=== PATIENT | male | born 1995 | race Hispanic/Latino ===

== ENCOUNTER 2021-08-21 17:23 | Emergency (ER) | payer BC ==
--- OUTSIDE RECORDS SUMMARY | 2021-08-21 17:26 | XMS REPORT | Continuity of Care Document ---
:1995 Author Organization [facility] t Address [address] [place] [address] Care Team Providers Name Role Phone Lab, Fam Pob I Attending Clinician Unavailable Se BORGES Attending Clinician Anita Hooker Attending Clinician Anita ALMEIDA Attending Clinician Unavailable SE Attending Clinician Unavailable Payers Payer Name Policy Type Policy Number Effective Date Expiration Date S ource Problems This patient has no known problems. Allergies, Adverse Reactions, Alerts Allergy Allergy Status Severity Reaction(s) Onset Inactive Treating Comm ents Source Name Type Date Date Clinician NO KNOWN Drug Active Univers ALLERGIE Class ity of S [facility] Social History Social Habit Start Date Stop Date Quantity Comments Source [facility] to [facility] Smoking Status Start Date Stop Date Source Unknown if ever smoked [facility] Medications Ordered Filled Start Stop Current Ordering Indication Dosage Frequency Signature Comments Components Source Medication Medication Date Date Medication? Clinician (SIG) Name Name amoxicillin Yes 500mg Take 500 U nivers -pot 5-21 mg by ity of clavulanate 05:57: mouth 3 Adal as 500 mg 28 (three) Medical 500-125 mg times Branch tablet daily. predniSONE Yes 20mg Take 20 mg U nivers 20 mg 5-21 by mouth ity of tablet 05:57: daily. [address] amoxicillin Yes 500mg Take 500 U nivers -pot 5-21 mg by ity of clavulanate 05:57: mouth 3 Adal as 500 mg 28 (three) Medical 500-125 mg times Branch tablet daily. predniSONE Yes 20mg Take 20 mg U nivers 20 mg 5-21 by mouth ity of tablet 05:57: daily. [address] Branch albuterol 2016-0 Yes 2{puff} Inhale 2 U nivers 90 5-21 Puffs ity of mcg/actuati 00:00: every 4 Adal as on inhaler 00 (four) Medical hours as Branch needed for Wheezing or Shortness of Breath. loratadine 2017-0 Yes 10mg Take 1 Unive rs 10 mg 5-21 tablet by ity of tablet 00:00: mouth [place] 00 daily. Medical Branch albuterol 2016-0 Yes 2.5mg Inhale 3 Uni vers 2.5 mg /3 5-21 mL every 4 ity of mL (0.083 00:00: (four) [place] %) 00 hours. May Medical nebulizer also Branch solution nebulize one extra every 6 hours. albuterol 2016-0 Yes 2{puff} Inhale 2 U nivers 90 5-21 Puffs ity of mcg/actuati 00:00: every 4 Adal as on inhaler 00 (four) Medical hours as Branch needed for Wheezing or Shortness of Breath. loratadine 2016-0 Yes 10mg Take 1 Unive rs 10 mg 5-21 tablet by ity of tablet 00:00: mouth [place] 00 daily. Medical Branch albuterol 0 Yes 2.5mg Inhale 3 Uni vers 2.5 mg /3 5-21 mL every 4 ity of mL (0.083 00:00: (four) [place] %) 00 hours. May Medical nebulizer also Branch solution nebulize one extra every 6 hours. Procedures This patient has no known procedures. Encounters Start End Encounter Admission Attending Care Care Encounter Source Date/Time Date/Time Type Type Clinicians Facility Department ID 2020-09-10 2020-09-10 Laboratory Lab, Adc Fam Pob I [facility] 1.2. [id number] Univers 14:08:44 14:28:44 Only Vani Suggs [facility] [id number] ity of Li [place] [id number] [place] Professbrianna [phone] Al dical nal [address] 2020-09-10 2020-09-10 Outpatient R [facility] [id number] Univers 14:20:00 14:20:00 [id number] [facility] 2020-09-10 2020-09-10 Outpatient R MAYANK [facility] [id number] Univers 14:20:00 14:20:00 LI [facility] 2020-02-18 2020-02-18 Laboratory Lab, Adc Fam Pob I [facility] 1.2. [id number] Univers 10:30:23 10:50:23 Only Vani Suggs [facility] [id number] [facility] [id number] Adal as Professio [phone] [address] 2020-02-18 2020-02-18 Outpatient R SE [facility] [id number] Univers 10:40:00 10:40:[address] [facility] Results This patient has no known results.
[2021-08-21 21:16] LABS: Urine Blood Negative (Negative); Urine Glucose Negative (Negative); Urine Protein Negative (Negative); Urine Specific Gravity 1.025 (1.005-1.030)
[2021-08-21 21:37] LABS: Absolute Lymphocytes (CBC) 2.8 K/uL (0.7-4.9); Hematocrit 46.9 % (39.6-49.0); Lymphocytes % 23.3 % (15.3-44.8); MPV 11.9 fL (7.6-11.3)
[2021-08-21] MEDS ORDERED: NA CHLORIDE 0.9% 500 ML ONE (21:38)
[2021-08-21] MEDS ORDERED: KETOROLAC 30 MG/ML INJ ONE (21:38)
[2021-08-21 21:47] LABS: ALT/SGPT 38 U/L (12-78); AST/SGOT 18 U/L (15-37); Albumin 3.6 g/dL (3.4-5.0); Alkaline Phosphatase 99 U/L (45-117); BUN Blood Urea Nitrogen 8 mg/dL (7-18); Bicarbonate 25 mmol/L (21-32); Bilirubin Direct 0.1 mg/dL (0-0.2); Bilirubin Total 0.4 mg/dL (0.2-1.0); Glucose Level 87 mg/dL (74-106); Lipase 75 U/L (73-393); Potassium 3.8 mmol/L (3.5-5.1); Protein, Total 8.6 g/dL (6.4-8.2); Sodium Level 137 mmol/L (136-145)
[2021-08-21 22:01] LABS: Urine Bacteria <20 /HPF (NONE SEEN); Urine RBC <5 /HPF (NONE SEEN)
--- NOTE | 2021-08-22 00:16 | EDPHYS ---
Physician Documentation [facility] Name: Abdiaziz Pierce Age: 25 yrs Sex: Male : 1995 Arrival Date: 08/21/2021 Time: 17:29 Bed 17 Private MD: ED Physician Red Walsh HPI: 08/21 21:20 This 25 yrs old Male presents to ER via Ambulatory with complaints of Flank cp Pain. 21:20 The patient complains of pain in the left upper flank and left upper abdomen. The pain cp does not radiate. 21:20 Onset: The symptoms/episode began/occurred suddenly, today. cp 21:20 Modifying factors: the symptoms are aggravated by movement. Associated signs and cp symptoms: Pertinent negatives: diarrhea, fever, urinary frequency, pain radiating to the lower extremities, vomiting, rash, injury. Patient reports he was awaken with sudden pain to left flank area today. 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 - Social history:: Smoking status: Patient denies any tobacco usage or history of. ROS: 21:25 Back: Positive for flank pain, on the left, Negative for injury or acute deformity, cp decreased range of motion. 21:25 Eyes: Negative for injury, pain, redness, and discharge. cp 21:25 Constitutional: Negative for body aches, chills, fever. 21:25 Neck: Negative for pain with movement, pain at rest, stiffness. 21:25 Cardiovascular: Negative for chest pain. 21:25 Respiratory: Negative for cough, shortness of breath, wheezing. 21:25 Abdomen/GI: Negative for nausea, vomiting, diarrhea, constipation. 21:25 Skin: Negative for rash. 21:25 Neuro: Negative for altered mental status, headache, weakness. 21:25 All other systems are negative. Exam: 21:30 Constitutional: The patient appears in no acute distress, alert, awake, non-toxic, well cp developed, well nourished, obese. 21:30 Head/Face: Normocephalic, atraumatic. cp 21:30 Eyes: Periorbital structures: appear normal, Conjunctiva: normal, no exudate, no injection, Sclera: no appreciated abnormality, Lids and lashes: appear normal, bilaterally. 21:30 ENT: External ear(s): are unremarkable, Nose: is normal, Mouth: Lips: moist, Oral mucosa: moist, Posterior pharynx: Airway: no evidence of obstruction, patent. 21:30 Neck: ROM/movement: is normal, is supple, without pain, no range of motions limitations. 21:30 Chest/axilla: Inspection: normal, Palpation: is normal, no crepitus, no tenderness. 21:30 Cardiovascular: Rate: normal, Rhythm: regular. 21:30 Respiratory: the patient does not display signs of respiratory distress, Respirations: normal, no use of accessory muscles, no retractions, labored breathing, is not present, Breath sounds: are clear throughout, no decreased breath sounds, no stridor, no wheezing. 21:30 Abdomen/GI: Inspection: abdomen appears normal, Palpation: soft, in all quadrants, mild abdominal tenderness, in the left upper quadrant and left upper lateral abdomen, rebound tenderness, is not appreciated, voluntary guarding, is not appreciated, involuntary guarding, is not appreciated. 21:30 Back: pain, is absent, ROM is normal. 21:30 Skin: cellulitis, is not appreciated, no rash present. Vital Signs: 18:04 BP 135 / 91; Pulse 90; Resp 18; Temp 98.5; Pulse Ox 100% ; Weight 158.76 kg; Height 6 vg1 ft. 2 in. (187.96 cm); Pain 7/10; 21:19 BP 142 / 87; Pulse 85; Resp 18; Pulse Ox 97% ; sm5 21:40 Pain 10/10; sm5 22:30 BP 130 / 81; Pulse 88; Resp 19; Pulse Ox 97% on R/A; sm5 23:30 BP 145 / 97; Pulse 78; Resp 18; Pulse Ox 99% on R/A; sm5 23:30 BP 140 / 89; Pulse 79; Resp 19; Pulse Ox 100% on R/A; sm5 18:04 Body Mass Index 44.94 (158.76 kg, 187.96 cm) vg1 MDM: 20:58 Patient medically screened. cp 22:00 Differential diagnosis: nephrolithiasis, pyelonephritis, UTI, diverticulitis, cp pancreatitis. 08/22 00:15 Data reviewed: vital signs, nurses notes, lab test result(s), radiologic studies, CT cp scan. 00:15 Counseling: I had a detailed discussion with the patient and/or guardian regarding: the cp historical points, exam findings, and any diagnostic results supporting the discharge/admit diagnosis, lab results, radiology results. 00:15 ED course: VSS. Labs reviewed and CT abdomen/pelvis negative for acute findings. Pain cp improved with meds. Will treat for musculoskeletal pain and discharge to home for continued monitoring. 08/21 21:14 Order name: Basic Metabolic Panel; Complete Time: 00:03 08/21 21:14 Order name: CBC with Diff; Complete Time: 00:03 08/22 00:03 Interpretation: Normal except: WBC 12.00; RBC 5.90; MCV 79.4; MCH 25.4; MPV 11.9. 08/21 21:14 Order name: Hepatic Function; Complete Time: 00:03 08/22 00:04 Interpretation: Normal except: TP 8.6; GLOB 5.0; A/G 0.7. 08/21 21:14 Order name: Lipase; Complete Time: 00:03 08/21 21:14 Order name: Urine Microscopic Only; Complete Time: 00:03 08/22 00:04 Interpretation: Reviewed. 08/21 21:16 Order name: Urine Dipstick-Ancillary; Complete Time: 00:03 EDTN 08/22 00:04 Interpretation: Reviewed. 08/21 21:14 Order name: IV Saline Lock; Complete Time: 21:16 08/21 21:14 Order name: Labs collected and sent; Complete Time: 21:16 08/21 21:14 Order name: Urine Dipstick-Ancillary (obtain specimen); Complete Time: 21:16 08/21 21:35 Order name: CT Stone Protocol cp Administered Medications: 08/21 21:42 Drug: Ketorolac 15 mg Route: IVP; Site: right forearm; sm5 08/22 00:16 Follow up: Response: Pain is decreased 5 08/21 21:42 Drug: NS 0.9% 500 ml Route: IV; Rate: bolus; Site: right forearm; sm5 22:23 Follow up: IV Status: Completed infusion; IV Intake: 500ml sm5 Disposition: 08/22 02:48 Co-signature as Attending Physician, Red Walsh MD. [email or web address] Disposition Summary: 08/22/21 00:16 Discharge Ordered Location: Home cp Problem: new cp Symptoms: have improved cp Condition: Stable cp Diagnosis - Upper abdominal pain, unspecified - left cp Followup: cp - With: Private Physician - When: 2 - 3 days - Reason: Recheck today's complaints Discharge Instructions: - Discharge Summary Sheet cp - Abdominal Pain, Adult cp Forms: - Medication Reconciliation Form cp - Thank You Letter cp - Antibiotic Education cp - Prescription Opioid Use cp - Work release form 5 Prescriptions: - ketoprofen 75 mg Oral capsule - take 1 capsule by ORAL route every 8 hours As needed; 20 capsule; Refills: 0, cp Product Selection Permitted Signatures: Dispatcher [employer] EDMS Emeterio Haas PA PA cp Garcia, Victoria, RN RN vg1 Red Walsh MD MD 7 Xin Enciso RN RN 5 Corrections: (The following items were deleted from the chart) 00:03 00:03 Reviewed. cp cp
--- NOTE | 2021-08-22 00:16 | ER ---
Nurse's Notes [facility] Name: Abdiaziz Pierce Age: 25 yrs Sex: Male : 1995 Arrival Date: 08/21/2021 Time: 17:29 Bed 17 Private MD: Diagnosis: Upper abdominal pain, unspecified-left Presentation: 08/21 18:04 Chief complaint: Patient states: Left side flank pain that work pt up from nap, states vg1 pain radiates up to left side of ABD; denies NVD. States pain is sharp. Coronavirus screen: Vaccine status: Patient reports being unvaccinated. Client denies travel out of the [place] in the last 14 days. Ebola Screen: Patient negative for fever greater than or equal to 101.5 degrees Fahrenheit, and additional compatible Ebola Virus Disease symptoms. Initial Sepsis Screen: Does the patient meet any 2 criteria? No. Patient's initial sepsis screen is negative. Does the patient have a suspected source of infection? No. Patient's initial sepsis screen is negative. Risk Assessment: Do you want to hurt yourself or someone else? Patient reports no desire to harm self or others. Onset of symptoms was August 21, 2021. 18:04 Method Of Arrival: Ambulatory vg1 18:04 Acuity: BILLIE 3 vg1 Triage Assessment: 18:06 General: Appears in no apparent distress. uncomfortable, Behavior is calm, cooperative. vg1 Pain: Complains of pain in posterior aspect of left lateral abdomen and left upper quadrant Pain currently is 7 out of 10 on a pain scale. GI: Patient currently denies diarrhea, nausea, vomiting. 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 - Social history:: Smoking status: Patient denies any tobacco usage or history of. Screenin:18 Abuse screen: Denies threats or abuse. Denies injuries from another. Nutritional sm5 screening: No deficits noted. Tuberculosis screening: No symptoms or risk factors identified. Fall Risk No fall in past 12 months (0 pts). No secondary diagnosis (0 pts). IV access (20 points). Ambulatory Aid- None/Bed Rest/Nurse Assist (0 pts). Gait- Normal/Bed Rest/Wheelchair (0 pts) Mental Status- Oriented to own ability (0 pts). Total Lewis Fall Scale indicates No Risk (0-24 pts). Assessment: 21:19 General: Appears in no apparent distress. Behavior is cooperative, appropriate for age. sm5 Pain: Complains of pain in left flank pain Pain began 2 hours ago. Neuro: No deficits noted. Level of Consciousness is awake, alert, Oriented to person, place, time, situation. Cardiovascular: No deficits noted. Capillary refill < 3 seconds Patient's skin is warm and dry. Respiratory: No deficits noted. Airway is patent Trachea midline Respiratory effort is even, unlabored. GI: No deficits noted. : Urine is clear, Reports pain in left flank(s), urinary frequency. 22:30 Reassessment: Patient states feeling better. 5 23:28 Reassessment: No changes from previously documented assessment. 5 Vital Signs: 18:04 BP 135 / 91; Pulse 90; Resp 18; Temp 98.5; Pulse Ox 100% ; Weight 158.76 kg; Height 6 vg1 ft. 2 in. (187.96 cm); Pain 7/10; 21:19 BP 142 / 87; Pulse 85; Resp 18; Pulse Ox 97% ; sm5 21:40 Pain 10/10; sm5 22:30 BP 130 / 81; Pulse 88; Resp 19; Pulse Ox 97% on R/A; sm5 23:30 BP 145 / 97; Pulse 78; Resp 18; Pulse Ox 99% on R/A; sm5 23:30 BP 140 / 89; Pulse 79; Resp 19; Pulse Ox 100% on R/A; sm5 18:04 Body Mass Index 44.94 (158.76 kg, 187.96 cm) vg1 ED Course: 17:29 Patient arrived in ED. mr 18:06 Triage completed. vg1 18:06 Arm band placed on. vg1 20:58 Emeterio Haas PA is PHCP. cp 20:58 Red Walsh MD is Attending Physician. cp 21:00 Xin Enciso RN is Primary Nurse. [facility] 21:16 Basic Metabolic Panel Sent. 21:16 CBC with Diff Sent. mk 21:16 Hepatic Function Sent. mk 21:16 Lipase Sent. 21:16 Inserted saline lock: 20 gauge in right forearm, using aseptic technique. Blood 5 collected. 21:19 Patient has correct armband on for positive identification. Bed in low position. Call sm5 light in reach. Side rails up X2. Pulse ox on. NIBP on. 21:19 No provider procedures requiring assistance completed. sm5 21:35 Urine Microscopic Only Sent. sm5 22:21 CT Stone Protocol In Process Unspecified. EDKY 08/22 00:29 IV discontinued, intact, bleeding controlled, No redness/swelling at site. Pressure 5 dressing applied. Administered Medications: 08/21 21:42 Drug: Ketorolac 15 mg Route: IVP; Site: right forearm; 5 08/22 00:16 Follow up: Response: Pain is decreased 5 08/21 21:42 Drug: NS 0.9% 500 ml Route: IV; Rate: bolus; Site: right forearm; 5 22:23 Follow up: IV Status: Completed infusion; IV Intake: 500ml 5 Intake: 22:23 IV: 500ml; Total: 500ml. 5 Outcome: 08/22 00:16 Discharge ordered by MD. cp 00:29 Discharged to home ambulatory, with family. [facility] 00:29 Condition: good 00:29 Discharge instructions given to patient, family, Instructed on discharge instructions, follow up and referral plans. medication usage, Demonstrated understanding of instructions, follow-up care, medications, Prescriptions given X 1. 00:29 Patient left the ED. 5 Signatures: Dispatcher [employer] [facility] Kamini Milner mr Emeterio Haas PA PA cp Garcia, Victoria, RN RN vg1 Xin Enciso RN RN sm5 Angelica Lewis, DREW alvarado
[2021-08-22 00:34] VITALS: TEMP 98.5
[2021-08-22 00:40] VITALS: BP 140/89; O2SAT 100
--- NOTE | 2021-08-23 21:26 | RAD REPORT ---
EXAM DESCRIPTION: CT - Stone Protocol - 08/22/2021 6:00 am CLINICAL HISTORY: 25-year-old male with flank pain. COMPARISON: None. EXAMINATION: CT of the abdomen and pelvis was performed without intravenous or oral contrast. Multipl namita reformatted images were provided. This exam was performed according to our departmental dose opt imization program which includes use of automated exposure control, adjustment of the mA and/or kV ac cording to patient size and/or use of iterative reconstruction technique. FINDINGS: Evaluation of solid organ pathology is limited secondary to lack of intravenous contrast. Within these limitations, the following observations are made. Chest: Evaluation through the lung bases reveals no focal opacity, pleural effusion or pneumothorax. Heart size is within normal limits. No pericardial effusion. Abdomen and pelvis: The liver, gallbladder, pancreas, spleen, bilateral kidneys and bilateral adrenal glands are within normal limits. The vessels are normal in caliber. No abdominopelvic lymph nodes are noted to be pathologically enlarged by CT measurement criteria. The bowel is within normal limits without abnormal bowel wall thickness or bowel dilation. No free air. No free abdominopelvic fluid collections. The appendix is within normal limits. The osseous structures are within normal limits. Moderate diffuse disk bulge and posterior osseous spurring and disk bulge present at L4-5 results in abutment of the RIGHT lateral recess. Moderate central disk herniation with calcification of L5-S1 extends into the central spinal canal by 10 mm with abutment of the bilateral lateral recess. IMPRESSION: 1. No specific acute intra-abdominal findings are noted to suggest etiology of the pat ient's abdominal pain. 2. Moderate diffuse disk bulge and posterior osseous spurring spurring and disk bulge present at L4 -5 results in abutment of the RIGHT lateral recess. 3. Moderate central disk herniation with calcification of L5-S1 extends into the central spinal can al by 10 mm with abutment of the bilateral lateral recess. Follow-up evaluation may be considered wit h MRI if the patient's pain persists. Electronically signed by: Xin Tucker MD 08/21/2021 10:40 PM [employer] O[employer]ATOR Due to temporary technical issues with the PACS/Fluency reporting system, reports are being signed by the in house radiologists without review as a courtesy to insure prompt reporting. The interpreting radiologist is fully responsible for the content of the report.
== END 2021-08-22 00:29 | disposition home or self-care (01) ==
LOC: ER 17:23
DX: R10.12 Left upper quadrant pain (principal)
CPT/HCPCS: 96361; 85025; 80048; 36415; 80076; 83690; 76377; 74176; 96374; 99284; J7040; 81003; 81015